=== PATIENT | female | born 1975 | race Caucasian/White ===

== ENCOUNTER 2018-02-01 14:17 | Emergency (ER) | payer BC ==
[2018-02-01 14:48] VITALS: BP 105/64
--- NOTE | 2018-02-01 15:47 | UC ---
Complaint Female HPI - HPI Summary HPI Summary: Patient is a 42-year-old female who is 7 weeks presenting to the with complaint of vaginal itching, slight discomfort, odor and discharge 4 days. She states she has had beefy in the past and states this feels somewhat similar. She has also had a yeast infection the past and states this feels dissimilar. Denies chance of STDs as she was recently tested 2 weeks ago. Denies any white vaginal discharge. However, she states the area "lyons." Denies any urinary symptoms or back pain. Denies any fevers, sweats, chills. She has been otherwise healthy with this . - History Of Current Complaint Chief Complaint: [facility]CGU Stated Complaint: PRIVATE Time Seen by Provider: 02/01/18 14:41 Hx Obtained From: Patient Hx Last Menstrual Period: 02/09/16 ?: No Onset/Duration: Sudden Onset Timing: Constant Severity Initially: Moderate Severity Currently: Moderate Pain Intensity: 0 Pain Scale Used: 0-10 Numeric Character: Burning Associated Signs And Symptoms: Positive: Vaginal Discharge - thin Related Hx: - 3, Para - 2 - Risk Factors Ectopic Risk Factor: Maternal Age ^ 30 Ovarian Torsion Risk Factor: Reproductive Age - Allergies/Home Medications Allergies/Adverse Reactions: Allergies Allergy/AdvReac Type Severity Reaction Status Date / Time No Known Allergies Allergy Verified 02/01/18 14:48 PMH/Surg Hx/FS Hx/Imm Hx Previously Healthy: Yes - Surgical History Surgical History: Yes Surgery Procedure, Year, and Place: tummy tuck and breast augmentation - Family History Known Family History: Negative: Cardiac Disease, Hypertension, Diabetes - Social History Occupation: Employed Full-time Lives: With Family Alcohol Use: None Substance Use Type: None Smoking Status (MU): Never Smoked Tobacco Have You Smoked in the Last Year: No Review of Systems Constitutional: Negative Skin: Negative Respiratory: Negative Cardiovascular: Negative Genitourinary: Vaginal/Penile Discharge, Other - vaginal burning Motor: Negative Neurovascular: Negative Musculoskeletal: Negative Psychological: Negative Is Patient Immunocompromised?: No All Other Systems Reviewed And Are Negative: Yes Physical Exam Triage Information Reviewed: Yes Appearance: Well-Appearing Vital Signs: Initial Vital Signs Temp 100.4 F 02/01/18 14:41 Pulse 77 02/01/18 14:41 BP 105/64 02/01/18 14:41 Pulse Ox 100 02/01/18 14:41 Vital Signs Reviewed: Yes Eye Exam: Normal Eyes: Positive: Conjunctiva Clear Dental Exam: Normal Neck exam: Normal Neck: Positive: Supple, No Lymphadenopathy Respiratory Exam: Normal Respiratory: Positive: Chest non-tender, Lungs clear Bowel Sounds: Positive: Present Pelvic Exam: Positive: External Exam Normal, Discharge - thin lopez. Negative: Cervicitis, Lesions, Mass Musculoskeletal Exam: Normal Musculoskeletal: Positive: Strength Intact Neurological: Positive: Alert, Muscle Tone Normal Psychological: Positive: Normal Response To Family Skin Exam: Normal Complaint Female Dx - Course Course Of Treatment: During the course of treatment, the patient is evaluated for vaginal discharge. Denies any chance of STDs. I have advised to recheck the affirm for bacterial vaginosis, yeast and Trichomonas. Patient is okay with this plan. exam performed. No external or internal lesions identified. No erythema or white copious discharge. Thin lopez discharge noted in the vaginal canal. Affirm obtained and sent for pathology. While awaiting results, I have advised patient start metronidazole gel intravaginally at bedtime 5 days. - Differential Dx/Diagnosis Provider Diagnoses: Vaginal burning and discharge Discharge - Sign-Out/Discharge Documenting (check all that apply): Patient Departure - Discharge Plan Condition: Stable Disposition: HOME Prescriptions: metroNIDAZOLE VAGINAL 0.75%* 1 applic VAGINAL BEDTIME #5 tube Patient Education Materials: Bacterial Vaginosis (ED) Referrals: Keisha Lainez MD [Primary Care Provider] - Additional Instructions: Will call with any results that differ from your current diagnoses Intravaginal Metronidazole gel x 5 days at bedtime If you feel you are developing a secondary yeast infection (less common with gel compared with oral), please use topical yeast medication until follow up with PCP/OBGYN - Billing Disposition and Condition Condition: STABLE Disposition: Home
--- NOTE | 2018-02-02 17:40 | UC ---
- Progress Note Progress Note: + frieda neg garnerella neg trich pt was Rx flagyl Please call pt - d/c flagyl Clotrimazole sent to pharmacy (pt ) Please call pt with update filemon 02/02/18 Discharge - Sign-Out/Discharge Documenting (check all that apply): Post-Discharge Follow Up - Discharge Plan Condition: Stable Disposition: HOME Prescriptions: metroNIDAZOLE VAGINAL 0.75%* 1 applic VAGINAL BEDTIME #5 tube Patient Education Materials: Bacterial Vaginosis (ED) Referrals: Keisha Lainez MD [Primary Care Provider] - Additional Instructions: Will call with any results that differ from your current diagnoses Intravaginal Metronidazole gel x 5 days at bedtime If you feel you are developing a secondary yeast infection (less common with gel compared with oral), please use topical yeast medication until follow up with PCP/OBGYN - Billing Disposition and Condition Condition: STABLE Disposition: Home
== END 2018-02-01 15:25 | disposition home or self-care (01) ==
LOC: UCEAST 14:17
DX: O99.89 Other specified diseases and conditions complicating pregnancy, childbirth and the puerperium (principal); N89.8 Other specified noninflammatory disorders of vagina; Z3A.01 Less than 8 weeks gestation of pregnancy
CPT/HCPCS: 81003; 87480; 87510; 87660; 99212; G0463

== ENCOUNTER 2018-03-05 08:33 | Emergency (ER) | payer BC, MEDICAID ==
[2018-03-05] MEDS ORDERED: NS 0.9% 1000 ML* 1,000 ML IV ONE (09:00)
[2018-03-05] MEDS ORDERED: Ondansetron INJ* 2 MG/ML VIAL IV ONE (09:10)
[2018-03-05 09:27] LABS: ABS Basophils 0 10^3/ul (0-0.2); ABS Eosinophils 0.1 10^3/ul (0-0.6); ABS Lymphocytes 1.7 10^3/ul (1.0-4.8); ABS Monocytes 0.5 10^3/ul (0-0.8); ABS Neutrophils 6.2 10^3/ul (1.5-7.7); ABS Nucleated RBC 0 10^3/ul; Eosinophil % 0.8 % (0-6); Hematocrit 39 % (35-47); Hemoglobin 13.6 g/dl (12.0-16.0); Lymphocyte % 19.6 % (25-47); Mean Corpuscular HGB Conc 35 g/dl (31-36); Mean Corpuscular Hemoglobin 33 pg (27-31); Mean Corpuscular Volume 94 fL (80-97); Mean Platelet Volume 8.3 um3 (7.4-10.4); Nucleated Red Blood Cells % 0.1; Platelet Count 171 10^3/ul (150-450); Red Blood Count 4.17 10^6/ul (4.00-5.40); Red Cell Distribution Width 13 % (10.5-15); White Blood Count 8.4 10^3/ul (3.5-10.8)
[2018-03-05 09:38] LABS: Urine Appearance Cloudy; Urine Blood Negative (Negative); Urine Color Yellow; Urine Ketones Negative (Negative); Urine Protein Negative (Negative); Urine Red Blood Cell Absent (Absent); Urine Specific Gravity 1.008 (1.010-1.030); Urine Urobilinogen Negative (Negative); Urine White Blood Cell Trace(0-5/hpf) (Absent)
[2018-03-05 11:19] VITALS: BP 120/67
--- NOTE | 2018-03-05 11:33 | ED ---
- HPI Summary HPI Summary: Patient is a 42-year-old female who presents emergency department for nausea and vomiting in early . Patient states she is roughly 12 weeks . She states she's been having nausea and vomiting over the last several weeks but symptoms have increased the last 2-3 days. She states she saw her OB around 5 weeks when she had an ultrasound that confirms an intrauterine . Patient states she has intermittent lower abdominal pain but is currently pain-free. She denies fever, chills, dysuria, vaginal bleeding or discharge. Denies recent upper respiratory symptoms. G. Denies complications with previous pregnancies other than nausea and vomiting. Patient has an appointment with her OB in 2 days. She is not taking any medications for nausea and vomiting. Symptoms are moderate in severity. No current modifying factors. Patient's notes she has not been able to keep any food down over the last several days. - History of Current Complaint Chief Complaint: EDNauseaVomitDiarrh Stated Complaint: POSS DEHYDRATION/3 MONS PREG Time Seen by Provider: 03/05/18 08:59 Hx Obtained From: Patient, Family/Panel Beater Pain Intensity: 0 - Assessment Hx Now: Yes Hx Hysterectomy: No - Allergies/Home Medications Allergies/Adverse Reactions: Allergies Allergy/AdvReac Type Severity Reaction Status Date / Time No Known Allergies Allergy Verified 03/05/18 08:45 PMH/Surg Hx/FS Hx/Imm Hx Previously Healthy: Yes Endocrine/Hematology History: Denies: Hx Diabetes, Hx Thyroid Disease Cardiovascular History: Denies: Hx Hypertension Respiratory History: Reports: Hx Pneumonia - we have no prior CXRs that show pneumonia, Other Respiratory Problems/Disorders - PNEUMONIA X 6-16 Denies: Hx Asthma - we have no prior CXRs that show pneumonia, done in December and Feb this year, Hx Chronic Obstructive Pulmonary Disease (COPD) GI History: Denies: Hx Ulcer - Surgical History Surgery Procedure, Year, and Place: tummy tuck and breast augmentation Infectious Disease History: No Infectious Disease History: Denies: Hx Clostridium Difficile, Hx Hepatitis, Hx Human Immunodeficiency Virus (HIV), Hx of Known/Suspected MRSA, Hx Shingles, Hx Tuberculosis, Hx Known/ Suspected VRE, History Other Infectious Disease, Traveled Outside the [place] in Last 30 Days - Family History Known Family History: Negative: Cardiac Disease, Hypertension, Diabetes - Social History Occupation: Works From/At Home Lives: With Family Alcohol Use: None Substance Use Type: Reports: None Hx Tobacco Use: No Smoking Status (MU): Never Smoked Tobacco Have You Smoked in the Last Year: No Review of Systems Constitutional: Negative Eyes: Negative ENT: Negative Cardiovascular: Negative Respiratory: Negative Positive: Vomiting, Nausea. Negative: Abdominal Pain Genitourinary: Negative Negative: burning, dysuria, discharge Neurological: Negative All Other Systems Reviewed And Are Negative: Yes Physical Exam - Physical Exam Triage Information Reviewed: Yes Vital Signs Reviewed: Yes Appearance: Positive: Well-Appearing - Patient sitting up in bed in no acute distress. Family present. Skin: Positive: Warm, Dry Head/Face: Positive: Normal Head/Face Inspection Eyes: Positive: Normal Neck: Positive: Supple, Nontender Respiratory/Lung Sounds: Positive: Clear to Auscultation, Breath Sounds Present Cardiovascular: Positive: Normal, RRR Abdomen Description: Positive: Nontender, No Organomegaly Neurological: Positive: Normal, CN Intact II-III Psychiatric: Positive: Affect/Mood Appropriate Diagnostics - Vital Signs Vital Signs Temp Pulse Resp BP Pulse Ox 03/05/18 11:18 99.0 F 86 18 120/67 99 03/05/18 08:44 99.3 F 88 17 131/87 98 - Laboratory Lab Results: Lab Results 03/05/18 03/05/18 03/05/18 Range/Units 09:19 09:19 09:20 WBC 8.4 (3.5-10.8) 10^3/ul RBC 4.17 (4.00-5.40) 10^6/ul Hgb 13.6 (12.0-16.0) g/dl Hct 39 (35-47) % MCV 94 (80-97) fL MCH 33 H (27-31) pg MCHC 35 (31-36) g/dl RDW 13 (10.5-15) % Plt Count 171 (150-450) 10^3/ul MPV 8.3 (7.4-10.4) um3 Neut % (Auto) 73.6 (38-83) % Lymph % (Auto) 19.6 L (25-47) % Wilson % (Auto) 5.7 (0-7) % Eos % (Auto) 0.8 (0-6) % Baso % (Auto) 0.3 (0-2) % Absolute Neuts (auto) 6.2 (1.5-7.7) 10^3/ul Absolute Lymphs (auto) 1.7 (1.0-4.8) 10^3/ul Absolute Monos (auto) 0.5 (0-0.8) 10^3/ul Absolute Eos (auto) 0.1 (0-0.6) 10^3/ul Absolute Basos (auto) 0 (0-0.2) 10^3/ul Absolute Nucleated RBC 0 10^3/ul Nucleated RBC % 0.1 Sodium 137 (135-145) mmol/L Potassium 3.7 (3.5-5.0) mmol/L Chloride 105 (101-111) mmol/L Carbon Dioxide 25 (22-32) mmol/L Anion Gap 7 (2-11) mmol/L BUN 9 (6-24) mg/dL Creatinine 0.54 (0.51-0.95) mg/dL Est GFR ( Amer) 151.3 (>60) Est GFR (Non-Af Amer) 125.0 (>60) BUN/Creatinine Ratio 16.7 (8-20) Glucose 101 H (70-100) mg/dL Calcium 9.0 (8.6-10.3) mg/dL Total Bilirubin 1.30 H (0.2-1.0) mg/dL AST 16 (13-39) U/L ALT 18 (7-52) U/L Alkaline Phosphatase 53 (34-104) U/L Total Protein 6.8 (6.4-8.9) g/dL Albumin 3.8 (3.2-5.2) g/dL Globulin 3.0 (2-4) g/dL Albumin/Globulin Ratio 1.3 (1-3) Urine Color Yellow Urine Appearance Cloudy Urine pH 7.0 (5-9) Ur Specific [place] 1.008 L (1.010-1.030) Urine Protein Negative (Negative) Urine Ketones Negative (Negative) Urine Blood Negative (Negative) Urine Nitrate Negative (Negative) Urine Bilirubin Negative (Negative) Urine Urobilinogen Negative (Negative) Ur Leukocyte Esterase 1+ A (Negative) Urine WBC (Auto) Trace(0-5/hpf) (Absent) Urine RBC (Auto) Absent (Absent) Ur Squamous Epith Cells Present A (Absent) Urine Bacteria Absent (Absent) Urine Glucose Negative (Negative) Result Diagrams: 03/05/18 09:19 03/05/18 09:19 Lab Statement: Any lab studies that have been ordered have been reviewed, and results considered in the medical decision making process. Course/Dx - Course Course Of Treatment: Patient presenting to the ER for nausea and vomiting early . She is afebrile with stable vital signs. She has a benign abdominal exam. We'll check basic labs, give IV fluids and Zofran. Labs and urinalysis are unremarkable without signs of dehydration electorlyte abnormality. Reexamination patient is feeling better after medication and is unable to keep down fluids without vomiting. Results were discussed. Will prescribe a few days of Zofran. Also advised to try taking [id number]. To follow-up with OB as scheduled in 2 days. Eat small frequent meals and increase fluids. Return to the ear symptoms change or worsen. Patient understands and agrees with plan. - Differential Diagnosis/HQI/PQRI: Hyperemesis Gravidarum, Early , UTI - Diagnoses Provider Diagnoses: Hyperemesis gravidarum Discharge - Sign-Out/Discharge Documenting (check all that apply): Patient Departure - Discharge Plan Condition: Good Disposition: HOME Prescriptions: Ondansetron TAB* [Zofran 4 MG Tab*] 4 mg PO Q6H PRN #12 tab PRN Reason: Nausea Patient Education Materials: Hyperemesis Gravidarum (ED) Referrals: Keisha Lainez MD [Primary Care Provider] - Additional Instructions: Follow up with your OB on Tuesday as scheduled Can try taking over the counter vitamin B6 for nausea Zofran as directed Increase fluids Eat and drink small frequent meals Return to ER if symptoms change or worsen - Billing Disposition and Condition Condition: GOOD Disposition: Home
== END 2018-03-05 11:18 | disposition home or self-care (01) ==
LOC: ED 08:33
DX: O21.0 Mild hyperemesis gravidarum (principal); Z3A.12 12 weeks gestation of pregnancy
CPT/HCPCS: 36415; 80053; 81003; 81015; 85025; 87086; 96374; 99282; J2405

== ENCOUNTER 2018-09-01 08:06 | Emergency (ER) | payer OTHER ==
--- OUTSIDE RECORDS SUMMARY | 2018-09-01 08:12 | XMS REPORT | Continuity of Care Document ---
:1975 External Reference #:[id number] Author Name Jacquelin Rojas MD Address [address] [place] [address] Care Team Providers Name Role Phone Keisha Potter Primary Care Physician Unavailable Payers Type Date Identification Numbers Payment Provider Subscriber Policy Number: [id number] [facility] Flores Rodriguez PayID: [id number] [address] [address] [place] [address] Policy Number: [id number] Medicaid [place] Flores Rodriguez PayID: [id number] [address] [place] [address] Advance Directives Description No Information Available Problems Date Description Provider Status Onset: 03/07/2018 Multigravida of advanced maternal age Nicholas Durbin CNM Active Onset: 07/29/2014 Adenocarcinoma of cervix MORALES Varela Resolved Resolved: 01/09/2015 Onset: 12/19/2013 Premenstrual tension syndrome Lisa Cazares NP Resolved Resolved: 04/01/2015 Onset: 04/01/2015 Uncertain viability of Lisa Cazares NP Resolved Resolved: 09/02/2015 Onset: 04/01/2015 Atypical squamous cells of undetermined Lisa Cazares NP Resolved significance on cervical Papanicolaou smear Resolved: 08/03/2016 Family History Date Family Member(s) Problem(s) Comments Father Hypercholesterolemia Mother Rheumatoid Arthritis First Daughter A&W Second Daughter A&W First Brother Hypothyroidism Second Brother born with aortic stenosis and has complications from that First Sister Hypothyroidism Paternal Grandfather due to Colon Cancer () Paternal Grandmother due to AR () Maternal Grandfather due to Cancer, Brain () Maternal Grandmother due to Congestive Heart Failure () Social History Type Date Description Comments Sex Unknown Education Highest level of education completed is a bachelor's degree Marital Status Patient is Living Situation Lives with daughters Pets Household pets include 2 dogs Occupation Day Care Provider Cigarette Use Never smoked cigarettes Alcohol Denies alcohol use Tobacco Use Start: Unknown Patient has never smoked Drug Use Denies drug use Smoking Status Reviewed: 08/08/18 Patient has never smoked Daily Caffeine Does not consume caffeine Exercise Type/Frequency Exercises regularly Current Seat Belt/Car Seat Always uses a seat belt Allergies, Adverse Reactions, Alerts Date Description Reaction Status Severity Comments 12/19/2013 NKDA Active 12/26/2006 Penicillin Inactive hives; has never taken cephalosporin Medications Medication Date Status Form Strength Qnty SIG Indications Ordering Provider / Active Tablets 0.8mg 1 po qd Unknown Vitamins 0000 Prometrium 08/25/ Hx Capsules 200mg 30caps Insert 1 Ollie Bateman 2016 - capsule in [place], 10/01/ vagina every M.D. 2017 night before bed Metrogel-Vagin 05/21/ Hx Gel 0.75% 70gm insert one Areli neves 2016 - applicator at [place], 08/02/ night at 2017 bedtime x 5 days Metrogel-Vagin 04/14/ Hx Gel 0.75% 1TX 1 applicator Molly neves 2015 - qhs x 5 days [facility], 04/19/ ANP-C 2015 No Active 04/13/ Hx Unknown Medications 2015 - 2015 Percocet 04/04/ Hx Tablets 5-325mg 10tabs 1 by mouth Nicholas 2014 - every 4 hours Ramakrishna 04/07/ as needed CNM 2015 moderate pain No Active 04/01/ Hx Unknown Medications 2014 - 2014 Plan B 02/21/ Hx Tablets 1.5mg 1tabs 1 by mouth Krupa One-Step 2013 - within 72 , Denise, 08/08/ hours of 2013 unprotected intercourse Jadyn 02/18/ Hx Tablets 3-0.02mg 84tabs 1 by mouth Phaelwaldemar 2014 - every day MD Crystal 2013 Metrogel-Vagin 10/17/ Hx Gel 0.75% 1TX 1 applicator Molly neves 2012 - qhs x 5 days [facility], 12/19/ ANP-C 2013 Gianvi 10/10/ Hx Tablets 3-0.02mg 3mo 1 po qd Ollie Bateman 2012 Ian Mir 12/19/ Ad 2013 Lexapro / Hx Tablets 10mg Unknown 2013 Clonazepam / Hx Tablets 1mg Unknown 2013 00/ Hx Capsules 100cap 1 by mouth Unknown Vitamin 0000 - s every day 2014 Lexapro /00/ Hx Tablets Unknown 2014 Lexapro /00/ Hx Tablets 5mg Unknown 2015 Progesterone / Hx Capsules 200mg 1 by mouth Unknown Micronized 0000 - every night 07/18/ at bedtime 2018 Medications Administered in Office Medication Date Status Form Strength Qnty SIG Indications Ordering Provider PT CHIQUITA Tbco Administered Injection Phaelon Id as Non User 019 MD Crystal Immunizations Description No Information Available Vital Signs Date Vital Result Comment 08/08/2018 10:39am BP Systolic 116 mmHg BP Diastolic 76 mmHg Height 61.5 inches 5'1.50" Weight 176.00 lb BMI (Body Mass Index) 32.7 kg/m2 8 Parity 2 03/07/2018 1:30pm BP Systolic 120 mmHg BP Diastolic 64 mmHg Height 61.5 inches 5'1.50" Weight 148.00 lb BMI (Body Mass Index) 27.5 kg/m2 Last Menstrual Period [id number] 8 Parity 2 10/11/2016 8:18am BP Systolic 102 mmHg BP Diastolic 70 mmHg Height 61.5 inches 5'1.50" Weight 135.00 lb BMI (Body Mass Index) 25.1 kg/m2 Last Menstrual Period 7697085 4 Parity 2 08/03/2016 10:22am BP Systolic 108 mmHg BP Diastolic 64 mmHg Height 61.5 inches 5'1.50" Weight 135.00 lb BMI (Body Mass Index) 25.1 kg/m2 Last Menstrual Period 3001861 4 Parity 2 04/13/2016 9:03am BP Systolic 110 mmHg BP Diastolic 70 mmHg Height 61.5 inches 5'1.50" Weight 141.00 lb BMI (Body Mass Index) 26.2 kg/m2 Last Menstrual Period 8979166 4 Parity 2 09/02/2015 9:44am BP Systolic 112 mmHg BP Diastolic 64 mmHg Height 61.5 inches 5'1.50" Weight 138.00 lb BMI (Body Mass Index) 25.6 kg/m2 Last Menstrual Period [id number] 4 Parity 2 04/10/2015 1:00pm BP Systolic 108 mmHg BP Diastolic 62 mmHg Height 61.5 inches 5'1.50" Weight 148.00 lb BMI (Body Mass Index) 27.5 kg/m2 Last Menstrual Period 6245589 4 Parity 2 04/01/2015 1:35pm BP Systolic 122 mmHg BP Diastolic 64 mmHg Height 61.5 inches 5'1.50" Weight 153.00 lb BMI (Body Mass Index) 28.4 kg/m2 Last Menstrual Period 9091005 4 Parity 2 01/09/2015 9:50am BP Systolic 118 mmHg BP Diastolic 70 mmHg Height 61.5 inches 5'1.50" Weight 149.00 lb BMI (Body Mass Index) 27.7 kg/m2 Last Menstrual Period 7566464 3 Parity 2 07/29/2014 11:02am BP Systolic 118 mmHg BP Diastolic 84 mmHg Height 61.5 inches 5'1.50" Weight 144.00 lb BMI (Body Mass Index) 26.8 kg/m2 Last Menstrual Period 3840397 3 Parity 2 07/08/2014 11:36am BP Systolic 106 mmHg BP Diastolic 68 mmHg Height 61.5 inches 5'1.50" Weight 142.00 lb BMI (Body Mass Index) 26.4 kg/m2 Last Menstrual Period 1268947 12/19/2013 3:02pm BP Systolic 100 mmHg BP Diastolic 58 mmHg Height 61.5 inches 5'1.50" Weight 136.00 lb BMI (Body Mass Index) 25.3 kg/m2 Last Menstrual Period 0717124 2 Parity 2 10/10/2012 2:17pm BP Systolic 110 mmHg BP Diastolic 62 mmHg Height 61 inches 5'1" Weight 131.00 lb BMI (Body Mass Index) 24.7 kg/m2 Last Menstrual Period 7295619 2 Parity 2 12/26/2006 8:14am BP Systolic 120 mmHg BP Diastolic 64 mmHg Height 62 inches 5'2" Weight 154.00 lb BMI (Body Mass Index) 28.2 kg/m2 Last Menstrual Period [id number] Results Test Date Facility Test Result H/L Range Note Laboratory test 08/04/2018 [facility] Gardnerella/Ye SEE RESULT 1, 2 [place] [address] ast: Vaginal BELOW [phone] Dna Laboratory test 07/03/2018 [facility] Glucose 1 HR 90 mg/dL N 70-160 3, 4 [place] [address] Post Prandial [phone] Laboratory test 06/27/2018 [facility] Glucose 1 HR <pending> [place] [address] Post Prandial [phone] CBC With No Diff 06/27/2018 [facility] White Blood 8.3 10^3/uL N 3.5-10.8 5 [place] [address] Count [phone] Red Blood Count 3.79 10^6/uL Low 4.00-5.40 Hemoglobin 12.8 g/dL N 12.0-16.0 Hematocrit 37 % N 35-47 Mean Corpuscular Volume 99 fL High 80-97 Mean Corpuscular Hemoglobin 34 pg High 27-31 Mean Corpuscular HGB Conc 34 g/dL N 31-36 Red Cell Distribution Width 14 % N 10.5-15 Platelet Count 158 10^3/uL N 150-450 Mean Platelet Volume 8.9 fL N 7.4-10.4 Laboratory test 06/27/2018 [facility] Glucose 1 HR 135 mg/dL N 70-160 6 [place] [address] Post Prandial [phone] Laboratory test 06/26/2018 [facility] Rupture of Negative 7 [place] [address] Membranes [phone] Urine Culture And 06/25/2018 [facility] Urine Culture SEE RESULT 8 [place] [address] BELOW [phone] Laboratory test 06/25/2018 [facility] 0.00 9 [place] [address] Hemoglobin [phone] Stain Type And Screen 06/25/2018 [facility] [place] [address] Type [phone] Antibody Screen NEGATIVE Urinalysis Profile 06/25/2018 [facility] [place] [address] [phone] Urine Appearance Clear Urine Specific [place] 1.010 N 1.010-1.030 Urine pH 6.0 N 5-9 Urine Urobilinogen Negative Negative Urine Ketones Trace Abnormal Negative Urine Protein Negative Negative Urine Leukocytes Negative Negative Urine Blood 1+ Abnormal Negative Urine Nitrite Negative Negative Urine Bilirubin Negative Negative Urine Glucose 1+(50 mg/dL) Abnormal Negative Urine White Blood Cell Trace(0-5/hpf) Absent Urine Red Blood Cell Absent Absent Urine Bacteria Absent Absent Urine Squamous Epithelial Cell Present Abnormal Absent Laboratory test 06/25/2018 [facility] Fibrinogen 354.3 N 110.8 -404.3 [place] [address] mg/dL [phone] CBC Auto Diff 06/25/2018 [facility] White Blood 8.0 N 3.5- 10.8 [place] [address] Count 10^3/uL [phone] Red Blood Count 3.79 10^6/uL Low 4.00-5.40 Hemoglobin 12.8 g/dL N 12.0-16.0 Hematocrit 36 % N 35-47 Mean Corpuscular Volume 96 fL N 80-97 Mean Corpuscular Hemoglobin 34 pg High 27-31 Mean Corpuscular HGB Conc 35 g/dL N 31-36 Red Cell Distribution Width 14 % N 10.5-15 Platelet Count 159 10^3/uL N 150-450 Mean Platelet Volume 8.2 fL N 7.4-10.4 Abs Neutrophils 5.4 10^3/uL N 1.5-7.7 Abs Lymphocytes 1.9 10^3/uL N 1.0-4.8 Abs Monocytes 0.6 10^3/uL N 0-0.8 Abs Eosinophils 0.1 10^3/uL N 0-0.6 Abs Basophils 0 10^3/uL N 0-0.2 Abs Nucleated RBC 0 10^3/uL Granulocyte % 67.8 % Lymphocyte % 23.6 % Monocyte % 7.5 % Eosinophil % 0.8 % Basophil % 0.3 % Nucleated Red Blood Cells % 0.1 Urine Culture And 06/06/2018 [facility] Urine Culture SEE RESULT 10 [place] [address] BELOW [phone] Urine Drug Comp 20 06/06/2018 [facility] Urine Negative 11 [place] [address] Amphetamine ng/mL [phone] Urine Barbiturates Negative ng/mL 12 Urine Benzodiazepines Negative ng/mL 13 Urine Cocaine Negative ng/mL 14 Urine Phencyclidine Negative ng/mL Cutoff: 25 Urine Tetrahydrocannabinol Negative ng/mL Cutoff: 50 15 Creatinine, Urine 34.9 mg/dL Specific [place] 1.003 pH 7.5 Oxidants Negative 16 Adulterants Comment Normal Codeine, Ur Not Detected ng/mL Cutoff: 25 17 Vomwfok-4-rrvk-glucuronide, Ur Not Detected ng/mL 18 Morphine, Ur Not Detected ng/mL Cutoff: 25 19 Vozuajai-4-nesu-glucuronide, U Not Detected ng/mL 20 6-monoacetylmorphine, Ur Not Detected ng/mL Cutoff: 25 21 Hydrocodone, Ur Not Detected ng/mL Cutoff: 25 22 Norhydrocodone, Ur Not Detected ng/mL Cutoff: 25 23 Dihydrocodeine, Ur Not Detected ng/mL Cutoff: 25 24 Hydromorphone, Ur Not Detected ng/mL Cutoff: 25 25 Laoelxbwyvpwe8jpasoadbcyvodzo Not Detected ng/mL 26 Oxycodone, Ur Not Detected ng/mL Cutoff: 25 27 Noroxycodone, Ur Not Detected ng/mL Cutoff: 25 28 Oxymorphone, Ur Not Detected ng/mL Cutoff: 25 29 Bwxxzyoztct-4-sdlp-glucuronide Not Detected ng/mL 30 Noroxymorphone, Ur Not Detected ng/mL Cutoff: 25 31 Fentanyl, Ur Not Detected ng/mL Cutoff: 2 32 Norfentanyl, Ur Not Detected ng/mL Cutoff: 2 33 Meperidine, Ur Not Detected ng/mL Cutoff: 25 34 Normeperidine, Ur Not Detected ng/mL Cutoff: 25 35 Naloxone, Ur Not Detected ng/mL Cutoff: 25 36 Jecxijlt-1-lrll-glucuronide, U Not Detected ng/mL 37 Methadone, Ur Not Detected ng/mL Cutoff: 25 38 Eddp, Ur Not Detected ng/mL Cutoff: 25 39 Propoxyphene, Ur Not Detected ng/mL Cutoff: 25 40 Norpropoxyphene, Ur Not Detected ng/mL Cutoff: 25 41 Tramadol, Ur Not Detected ng/mL Cutoff: 25 42 O-desmethyltramadol, Ur Not Detected ng/mL Cutoff: 25 43 Tapentadol, Ur Not Detected ng/mL Cutoff: 25 44 N-desmethyltapentadol, Ur Not Detected ng/mL Cutoff: 50 45 Anbmmhsxtj-oqgf-rludwivdirj, U Not Detected ng/mL 46 Buprenorphine, Ur Not Detected ng/mL Cutoff: 5 47 Norbuprenorphine, Ur Not Detected ng/mL Cutoff: 5 48 Norbuprenorphine glucuronide Not Detected ng/mL Cutoff: 20 49 Opioid Interpretation See Comment 50 Laboratory 06/06/2018 [facility] Gardnerella/Yeast: SEE RESULT 51 [place] [address] Vaginal Dna BELOW [phone] Laboratory 04/05/2018 [facility] Gardnerella/Yeast: SEE RESULT 52 [place] [address] Vaginal Dna BELOW [phone] HIV 1/2 AB 04/05/2018 [facility] HIV 1 2 Antibody Nonreactive Nonreactive 53 [place] [address] [phone] Laboratory 04/05/2018 [facility] Trichomonas Negative Negative 54 [place] [address] vaginalis Result [phone] Syphillis Igg W/Reflex RPR Nonreactive Nonreactive 55 Hepatitis B Surface Antigen Nonreactive Nonreactive 56 Hepatitis C Antibody Nonreactive Nonreactive 57 GC/Chlamydia Dna 04/05/2018 [facility] Chlamydia [place] [address] trachomatis Rna [phone] Neisseria gonorrhoeae (GC) Rna Negative Negative Laboratory test 04/05/2018 [facility] Herpes Negative Negative 58, 59 [place] [address] Simplex Igm [phone] Screen Herpes Simplex 04/05/2018 [facility] Herpes Positive Negative Type 1&2 [place] [address] Simplex [phone] Virus I IgG AB Herpes Simplex Virus II IgG AB Negative Negative 60 Laboratory test 04/05/2018 [facility] Hepatitis C <pending> [place] [address] Antibody [phone] Lead 04/05/2018 [facility] Lead,Venous, B < 1.0 g/dL 0.0-4 61 [place] [address] .9 [phone] Venous/Capillary Venous Submitting Laboratory Phone [phone] Type And Screen 04/05/2018 [facility] Patient [place] [address] [phone] Antibody Screen NEGATIVE CBC With No 04/05/2018 [facility] White Blood 8.0 10^3/uL N 3.5-10.8 [place] [address] Count [phone] Red Blood Count 3.89 10^6/uL Low 4.00-5.40 Hemoglobin 12.8 g/dL N 12.0-16.0 Hematocrit 36 % N 35-47 Mean Corpuscular Volume 93 fL N 80-97 Mean Corpuscular Hemoglobin 33 pg High 27-31 Mean Corpuscular HGB Conc 35 g/dL N 31-36 Red Cell Distribution Width 14 % N 10.5-15 Platelet Count 172 10^3/uL N 150-450 Mean Platelet Volume 9.1 um3 N 7.4-10.4 PNL No 04/05/2018 [facility] Rubella Screen Immune Immune 63 [place] [address] [phone] Hemoglobin A1c 4.3 % N 4.0-5.6 64 Hepatitis B Surface Ag <pending> Syphillis Igg W/Reflex RPR <pending> Chromosomes 13, 18, 21 03/08/[address] [facility] Chromosome 13 Negative N 65 + Sex Chromosome Aneuploidy Chromosome 18 Aneuploidy Negative N 66 Chromosome 21 Aneuploidy Negative N 67 Sex Chromosome Analysis Male N 68 PDF Report SEE IMAGE Thyroid Function 03/08/2018 [facility] Thyroid Stim 1.2 mIU/L 0.3-4.2 [address] [place] [address] Hormone [phone] Laboratory test 03/07/2018 [facility] Culture Genital SEE RESULT 70 [place] [address] & Sensitivity BELOW [phone] Urine Culture And 03/07/2018 [facility] Urine Culture SEE RESULT 71 [place] [address] BELOW [phone] Laboratory test 08/25/2016 [facility] HCG 12.46 N 72 [place] [address] mIU/mL [phone] Progesterone 2.1 ng/mL N 73 Laboratory test 08/03/2016 [facility] Trichomonas Negative N Negative 74 [place] [address] Vaginalis Rna [phone] Human Papilloma Virus Rna Negative N Negative 75 GC/Chlamydia Dna 08/03/2016 [facility] Chlamydia [place] [address] trachomatis Rna [phone] Neisseria gonorrhoeae (GC) Rna Negative N Negative Laboratory test 08/03/2016 [facility] Cytology SEE RESULT 76 [place] [address] BELOW [phone] GC/Chlamydia 04/13/2016 [facility] Chlamydia Negative [place] [address] trachomatis Rna [phone] Neisseria gonorrhoeae (GC) Rna Negative N Negative Laboratory 04/13/2016 [facility] Trichomonas Negative N Negative 77 [place] [address] vaginalis Rna [phone] Laboratory 04/13/2016 [facility] Gardnerella/Ye SEE RESULT 78 [place] [address] ast: Vaginal BELOW [phone] Dna HIV 1/2 AB 04/13/2016 [facility] HIV 1 2 Nonreactive N Nonreactive 79 [place] [address] Antibody [phone] Laboratory 04/13/2016 [facility] Syphillis Igg Nonreactive N Nonreactive 80 [place] [address] W/Reflex RPR [phone] Laboratory 09/02/2015 [facility] Cytology SEE RESULT 81 [place] [address] BELOW [phone] Human Papilloma Virus Rna Negative N Negative 82 Laboratory 04/29/2015 [facility] BHCG < 2.10 [place] [address] Quantitative mIU/mL [phone] Laboratory 04/10/2015 [facility] BHCG 126.59 [place] [address] Quantitative mIU/mL [phone] Parvovirus B19 04/01/2015 [facility] Parvovirus (B19) 5.84 index Abnormal <0.9 83 Igg & [place] [address] IgG Antibody 0 [phone] Parvovirus (B19) IgM Antibody 0.10 index N <0.90 84 Parvovirus Interpretation See Comment N 85 [facility] [place] [address] Quantitative mIU/mL [phone] Urine Culture 04/01/2015 [facility] Urine Culture SEE [address] [place] [address] RESULT Sensitivities [phone] BELOW Laboratory test 01/09/2015 [facility] Human POSITIVE Abnormal Negative 87 [place] [address] Papilloma [phone] Virus Rna GC/Chlamydia 01/09/2015 [facility] Chlamydia Negative [place] [address] trachomatis [phone] Rna Neisseria gonorrhoeae (GC) Rna Negative N Negative 88 Laboratory test 01/09/2015 [facility] Cytology SEE RESULT 89 [place] [address] BELOW [phone] Laboratory test 07/29/2014 [facility] Beta HCG 2.53 IU/mL N 0.0- 90, 91 [place] [address] Quantitative 5.0 [phone] Type And Screen 07/29/2014 [facility] [place] [address] Type [phone] Antibody Screen NEGATIVE N GC/Chlamydia Dna 07/29/2014 [facility] Chlamydia Negative [place] [address] trachomatis Rna [phone] Neisseria gonorrhoeae (GC) Rna Negative N Negative 92 GC/Chlamydia 12/19/2013 [facility] GC/Chlamydia RUN DATE: 93 [place] [address] Rna 12/21/ <SEE [phone] NOTE> Laboratory 12/19/2013 [facility] Cytology RUN DATE: 94 [place] [address] 12/21/ <SEE [phone] NOTE> RPR 12/19/2013 [facility] Syphilis IgG Nonreactive N Nonreactive 95 [place] [address] [phone] RPR TNP N Nonreactive RPR Titer TNP N Pediatric/Maternal NO N Herpes Simplex 12/19/2013 [facility] Herpes Simplex Negative N Negative 96 Type 1&2 [place] [address] Type 1 2 IgM [phone] Herpes Simplex 12/19/2013 [facility] Herpes Simplex Positive N Negative Type 1&2 [place] [address] Virus I IgG AB [phone] Herpes Simplex Virus II IgG AB Negative N Negative 97 Hepatitis 12/19/2013 [facility] Hepatitis B Nonreactive [place] [address] Surface [phone] Antigen Hepatitis B Core IgM Nonreactive N Nonreactive Hepatitis A AB IgM Nonreactive N Nonreactive Hepatitis C Antibody Nonreactive N Nonreactive HIV 1/2 AB 12/19/2013 [facility] HIV 1 2 Antibody Nonreactive N Nonreactive [address] [place] [address] [phone] GC/Chlamydia 10/10/2012 [facility] GC/Chlamydia Rna (SEE NOTE) neg 99 [place] [address] [phone] Laboratory 10/10/2012 [facility] Cytology RUN DATE: [place] [address] 10/17/ <SEE [phone] NOTE> Human 10/10/2012 [facility] [place] [address] Papillomavirus Virus [phone] Source Human Papillomavirus High Risk Negative Negative 101 Laboratory test 12/26/2006 [facility] Urine Culture NG [address] [place] [address] Sensitivi [phone] 1 [id number] 2 SEE RESULT BELOW Name: FLORES RODRIGUEZ : [address]: Nicholas Durbin [facility] Acct: [id number] Unit: [id number] AGE: 43 Location: [facility] Re08/04/18 SEX: F Status: REG REF SPEC: [id number] MICHAELA: 08/04/18-[address]: Nicholas Durbin [facility] REQ: [id number] RECD: 08/04/182874 STATUS: COMP _ SOURCE: VAGINAL SPDESC: ORDERED: Emmy,Yeast DNA COMMENTS: [id number] Would you like to order Trichomonas Vaginalis testing? No Procedure Result Reported Site Gardnerella/Yeast: Vaginal DNA Final 08/05/18- 1509 ML Organism 1 Negative Gardnerella Organism 2 Negative Iesha The presence of G. vaginalis, although suggestive, is not diagnostic for bacterial vaginosis. Results should be interpreted in conjuction with other clinical and laboratory data available. Women with vaginal discharge should be evaluated for risk factors of cervicitis and pelvic inflammatory disease, toxic shock syndrome (S.aureus), and if present, evaluated for organisms not included in this assay such as N. gonorrhoeae, C. trachomatis, Mobiluncus, Mycoplasma and/or Prevotella. Mixed infections may occur. The performance of this test on patient specimens collected during or immediately after antimicrobial therapy is unknown. The presence or absence of Iesha species, or G. vaginalis cannot be used as a test for therapeutic success or failure. * - Main Lab . END OF REPORT DEPARTMENT OF PATHOLOGY, [address] [place] [address] James Richter M.D. Director [facility] # [id number] 7 A NEGATIVE results indicates there is no evidence of membrane rupture. 8 SEE RESULT BELOW Name: FLORES RODRIGUEZ : [address]: Jacquelin Rojas MD Acct: [id number] Unit: [id number] AGE: 43 Location: [facility] Re06/25/18 SEX: F Status: DEP REF SPEC: [id number] MICHAELA: 06/25/18-[address]: Yamileth Huang [facility] REQ: [id number] RECD: 06/25/18 STATUS: WALTER ROUSE DR: Keisha Rojas MD _ SOURCE: URINE [facility]: ORDERED: Urine Culture Procedure Result Reported Site Urine Culture Final 06/27/18- 0816 ML No Growth (<1,000 CFU/mL) * ML - Main Lab . END OF REPORT DEPARTMENT OF PATHOLOGY, [address] [place] [address] James Richter M.D. Director [facility] # [id number] Hemoglobin Interpretation: % Cells Volume of Maternal Hemorrhage 0.0 - 0.0045 Up to 15 ml 0.0046 - 0.0090 15 - 30 ml 0.0091 - 0.0135 30 - 45 ml 0.0136 - 0.0180 45 - 60 ml 0.0181 - 0.0225 60 - 75 ml 10 SEE RESULT BELOW Name: FLORES RODRIGUEZ : [address]: Nicholas Durbin [facility] Acct: [id number] Unit: [id number] AGE: 42 Location: [facility] Re06/06/18 SEX: F Status: REG REF SPEC: [id number] MICHAELA: 06/06/[address]: Nicholas Durbin [facility] REQ: [id number] RECD: 06/06/18 STATUS: COMP _ SOURCE: URINE SPDESC: ORDERED: Urine Culture COMMENTS: [id number] Urine Source: Random Procedure Result Reported Site Urine Culture Final 06/07/18- 1207 ML No Growth (<1,000 CFU/mL) * ML - Main Lab . END OF REPORT DEPARTMENT OF PATHOLOGY, [address] [place] [address] James Richter M.D. Director [facility] # [id number] 11 REFERENCE VALUE Cutoff: 500 12 REFERENCE VALUE Cutoff: 200 13 REFERENCE VALUE Cutoff: 100 14 REFERENCE VALUE Cutoff: 150 15 ADDITIONAL INFORMATION This report is intended for use in clinical monitoring or management of patients. It is not intended for use in employment-related testing. 16 REFERENCE VALUE Cutoff: 200 mg/L 17 Tylenol 3 18 Metabolite of codeine REFERENCE VALUE Cutoff: 100 19 Vanna Santana, [place] Contin; Also a minor metabolite (10%) of codeine and can be seen in low concentrations (<2,000 ng/mL) with poppy seed ingestion. 20 Metabolite of morphine REFERENCE VALUE Cutoff: 100 21 Metabolite of heroin 22 Lortab, [place], Vicodin; Also a very minor metabolite of codeine and impurity (<1%) of oxycodone. 23 Metabolite of hydrocodone 24 Metabolite of hydrocodone 25 Dilaudid, Exalgo; Also a metabolite of hydrocodone and a minor (<5%) metabolite of morphine. 26 Metabolite of hydromorphone REFERENCE VALUE Cutoff: 100 27 Endocet, Percocet, Oxycontin 28 Metabolite of oxycodone 29 Numorphan, Opana; Also a metabolite of oxycodone. 30 Metabolite of oxymorphone REFERENCE VALUE Cutoff: 100 31 Metabolite of oxymorphone 32 Actiq, Duragesic, Fentora 33 Metabolite of fentanyl 34 Demerol 35 Metabolite of meperidine 36 Narcan 37 Metabolite of naloxone REFERENCE VALUE Cutoff: 100 38 Dolophine 39 Metabolite of methadone 40 Darvon, Darvocet 41 Metabolite of propoxyphene 42 Tradol, Ultram, Ultracet 43 Metabolite of tramadol 44 Nucynta 45 Metabolite of tapentadol 46 Metabolite of tapentadol REFERENCE VALUE Cutoff: 100 47 Buprenex, Suboxone 48 Metabolite of buprenorphine 49 Metabolite of buprenorphine 50 No opioids were detected. The absence of expected drug(s) and/or drug metabolite(s) may indicate non-compliance, altered pharmacokinetics, inappropriate timing of specimen collection relative to drug administration, diluted/adulterated urine, or limitations of testing. ADDITIONAL INFORMATION This test was developed and its performance characteristics determined by [facility] in a manner consistent with CLIA requirements. This test has not been cleared or approved by the U.S. Food and Drug Administration. Test Performed by: [facility] [address] [place] [address] 51 SEE RESULT BELOW Name: FLORES RODRIGUEZ : [address]: Nicholas Durbin [facility] Acct: [id number] Unit: [id number] AGE: 42 Location: [facility] Re06/06/18 SEX: F Status: REG REF SPEC: [id number] MICHAELA: 06/06/[address] [facility] [address]: Nicholas Durbin [facility] REQ: [id number] RECD: 06/06/18 STATUS: COMP _ SOURCE: VAGINAL SPDESC: ORDERED: Emmy,Yeast DNA COMMENTS: [id number] Would you like to order Trichomonas Vaginalis testing? No Procedure Result Reported Site Gardnerella/Yeast: Vaginal DNA Final 06/07/18- 1326 ML Organism 1 Negative Iesha Organism 2 Negative Gardnerella The presence of G. vaginalis, although suggestive, is not diagnostic for bacterial vaginosis. Results should be interpreted in conjuction with other clinical and laboratory data available. Women with vaginal discharge should be evaluated for risk factors of cervicitis and pelvic inflammatory disease, toxic shock syndrome (S.aureus), and if present, evaluated for organisms not included in this assay such as N. gonorrhoeae, C. trachomatis, Mobiluncus, Mycoplasma and/or Prevotella. Mixed infections may occur. The performance of this test on patient specimens collected during or immediately after antimicrobial therapy is unknown. The presence or absence of Iesha species, or G. vaginalis cannot be used as a test for therapeutic success or failure. * - Main Lab . END OF REPORT DEPARTMENT OF PATHOLOGY, [address] [place] [address] James Richter M.D. Director [facility] # [id number] 52 SEE RESULT BELOW Name: FLORES RODRIGUEZ : [address]: Chantal Olivares CNM Acct: [id number] Unit: [id number] AGE: 42 Location: [facility] Re04/05/18 SEX: F Status: REG REF SPEC: [id number] MICHAELA: 04/05/18-[address]: Chantal Olivares CNM REQ: [id number] RECD: 04/06/18 STATUS: WALTER ROUSE DR: Keisha Potter MD _ SOURCE: VAGINAL SPDESC: ORDERED: Emmy,Yeast DNA Would you like to order Trichomonas Vaginalis testing? Y Procedure Result Reported Site Gardnerella/Yeast: Vaginal DNA Final 04/07/18- 1533 ML Organism 1 POSITIVE GARDNERELLA Organism 2 POSITIVE IESHA The presence of G. vaginalis, although suggestive, is not diagnostic for bacterial vaginosis. Results should be interpreted in conjuction with other clinical and laboratory data available. Women with vaginal discharge should be evaluated for risk factors of cervicitis and pelvic inflammatory disease, toxic shock syndrome (S.aureus), and if present, evaluated for organisms not included in this assay such as N. gonorrhoeae, C. trachomatis, Mobiluncus, Mycoplasma and/or Prevotella. Mixed infections may occur. The performance of this test on patient specimens collected during or immediately after antimicrobial therapy is unknown. The presence or absence of Iesha species, or G. vaginalis cannot be used as a test for therapeutic success or failure. * ML - Main Lab . END OF REPORT DEPARTMENT OF PATHOLOGY, [address] [place] [address] James Richter M.D. Director [facility] # [id number] 53 It is recognized that currently available assays for the detection of antibodies to HIV-1 and/or HIV-2 may not detect all infected individuals. HIV antibodies may be undetectable in some stages of the infection and in some clinical conditions. The performance of this assay has not been established for populations of infants or children. Assayed by Chemiluminescence Microparticle Immunoassay on the Siemens Advia Centaur CP. Values obtained with different methods or kits cannot be used interchangeably.The diagnostic specificity of the ADVIA Centaur 1/O/2 Enhanced assay in the low risk population was 99.90% (6052/6058) with a 95% confidence interval of 99.78 to 99.96%. 54 GC/Chlamydia Source?: Endocervical Trichomonas Source: Endocervical 55 Warning: A positive result is not useful for establishing a diagnosis of syphilis. In most situations, such a result may reflect a prior treated infection; a negative result can exclude a diagnosis of syphilis except for incubating or early primary disease. 56 [id number] 57 [id number] 58 [id number] 59 ADDITIONAL INFORMATION This test has been modified from the numerical analysis group manager's instructions. Its performance characteristics were determined by [facility] in a manner consistent with CLIA requirements. This test has not been cleared or approved by the U.S. Food and Drug Administration. Test Performed by: [facility] - [address] [address] 60 Test Performed by: [facility] - [address] [address] 61 ADDITIONAL INFORMATION Testing performed by Inductively Coupled Plasma-Mass Spectrometry (ICP-MS). This test was developed and its performance characteristics determined by [facility] in a manner consistent with CLIA requirements. This test has not been cleared or approved by the U.S. Food and Drug Administration. 62 Test Performed by: [address] [address] 63 [id number] 64 Therapeutic target for the treatment of diabetes mellitus patients is <7% HBA1C, and in selective patients <6.0%. Please refer to [place] diabetic care guidelines for further information. 65 No aneuploidy detected. 66 No aneuploidy detected. 67 No aneuploidy detected. 68 Male: No aneuploidy detected. 69 Test Performed by: [facility] - [address] [address] 70 SEE RESULT BELOW Name: FLORES RODRIGUEZ : [address]: Molly Scales Acct: [id number] Unit: [id number] AGE: 42 Location: [facility] Re03/07/18 SEX: F Status: REG REF SPEC: [id number] MICHAELA: 03/07/18-[address]: Molly ROSALES C REQ: [id number] RECD: 03/07/18-561 STATUS: COMP _ SOURCE: CERVIX SPDESC: ORDERED: Genital Culture COMMENTS: [id number] Procedure Result Reported Site Genital Culture Final 03/19/18- 1710 ML Organism 1 YEAST Quantity 1+ Organism 2 NORMAL LYNDON Quantity 1+ Routine genital cultures do not include selective agar for Neisseria gonorrhoeae. Molecular testing offers better test sensitivity and therefore is the preferred test methodology for identifying this organism. * ML - Main Lab . END OF REPORT DEPARTMENT OF PATHOLOGY, [address] [place] [address] James Richter M.D. Director [facility] # [id number] 71 SEE RESULT BELOW Name: FLORES RODRIGUEZ : [address]: Molly Scales Acct: [id number] Unit: [id number] AGE: 42 Location: [facility] Re03/07/18 SEX: F Status: REG REF SPEC: [id number] MICHAELA: 03/07/18-[address]: Molly Scales REQ: [id number] RECD: 03/07/18 STATUS: COMP _ SOURCE: URINE SPDESC: ORDERED: Urine Culture COMMENTS: [id number] Procedure Result Reported Site Urine Culture Final 03/08/18- 1620 ML No Growth (<1,000 CFU/mL) * ML - Main Lab . END OF REPORT DEPARTMENT OF PATHOLOGY, [address] [place] [address] James Richter M.D. Director [facility] # [id number] 72 <5.0 Negative 5.0 - 25.0 Indeterminate (Repeat testing recommended after 72 hours) >25.0 Positive Perimenopausal women can display HCG levels of up to 20 mIU/mL 73 Female reference ranges for Progesterone: Follicular phase.......0.3 - 1.5 ng/ml Mid-luteal phase.......5.2 - 18.5 ng/ml Postmenopausal.........< 0.8 ng/ml 1st trimester.........4.7 - 50.0 ng/ml 2nd trimester.........19.4 - 45.3 ng/ml 74 [id number] GC/Chlamydia Source?: Thin Prep HPV Source?: Thin Prep Trichomonas Source: Thin Prep 75 The high-risk HPV types detected by the assay include: 16, 18, 31, 33, 35, 39, 45, 51, 52, 56, 58, 59, 66, and 68. 76 SEE RESULT BELOW Name: FLORES IRWIN : [address]: Lisa Cazares NP Acct: [id number] Unit: [id number] AGE: 41 Location: [facility] Re08/03/16 SEX: F Status: REG REF SPEC: [id number] MICHAELA: 08/03/16-[address] [facility] [address]: Lisa Cazares NP REQ: [id number] RECD: 08/03/16 STATUS: SOUT _ ORDERED: IMAGE ANALYSIS, HPV/Thin Prep COMMENTS: [id number] FINAL DIAGNOSIS Negative for Intraepithelial lesion or Malignancy A. Ectocervical/Endocervical Specimen Adequacy: Satisfactory of evaluation Transformation zone component identified Patient Information: HPV: High risk HPV RNA testing regardless of pap results. Actual Specimen Date: 08/03/16 Last Menstrual Date: 07/27/16 Date of Last Specimen: 09/02/15 ?: N Date Time Test Result Flag (u) Normal Range 08/03/16 1056 HPV RNA Negative Negative The high-risk HPV types detected by the assay include: 16, 18, 31, 33, 35, 39, 45, 51, 52, 56, 58, 59, 66, and 68. Signed (signature on file) HEMANT Tan(ASCP) 08/05 0845 This Pap test was evaluated with the assistance of the ThinPrep Test Imaging System. Due to cytologic findings at the ear muff assembler microscope, comprehensive manual rescreening by a Door Slinger may be required. The Pap Smear is a screening test designed to aid in the detection of premalignant and malignant conditions of the uterine cervix. It is not a diagnostic procedure and should not be used as the sole means of detecting cervical cancer. Both false- positive and false- negative reports do occur. Depending on your risk status, a Pap smear should be obtained and evaluated every 1-3 years. END OF REPORT * ML=Testing performed at Main Lab DEPARTMENT OF PATHOLOGY, [address] [place] [address] James Richter M.D. Director [facility] # [id number] 77 [id number] GC/Chlamydia Source?: Endocervical Trichomonas Source: Endocervical 78 SEE RESULT BELOW Name: FLORES IRWIN : [address]: Molly Scales Acct: [id number] Unit: [id number] AGE: 40 Location: [facility] Re04/13/16 SEX: F Status: REG REF SPEC: [id number] MICHAELA: 04/13/[address]: Molly Scales REQ: [id number] RECD: 04/13/16-9352 STATUS: COMP _ SOURCE: VAGINAL SPDESC: ORDERED: Emmy,Yeast DNA COMMENTS: [id number] Procedure Result Reported Site Gardnerella/Yeast: Vaginal DNA Final 04/14/16- 1100 ML Organism 1 POSITIVE GARDNERELLA Organism 2 Negative Iesha The presence of G. vaginalis, although suggestive, is not diagnostic for bacterial vaginosis. Results should be interpreted in conjuction with other clinical and laboratory data available. Women with vaginal discharge should be evaluated for risk factors of cervicitis and pelvic inflammatory disease, toxic shock syndrome (S.aureus), and if present, evaluated for organisms not included in this assay such as N. gonorrhoeae, C. trachomatis, Mobiluncus, Mycoplasma and/or Prevotella. Mixed infections may occur. The performance of this test on patient specimens collected during or immediately after antimicrobial therapy is unknown. The presence or absence of Iesha species, or G. vaginalis cannot be used as a test for therapeutic success or failure. * ML - MAIN LAB ([facility]) . END OF REPORT * ML=Testing performed at Main Lab DEPARTMENT OF PATHOLOGY, [address] [place] [address] James Richter M.D. Director [facility] # [id number] 79 It is recognized that currently available assays for the detection of antibodies to HIV-1 and/or HIV-2 may not detect all infected individuals. HIV antibodies may be undetectable in some stages of the infection and in some clinical conditions. The performance of this assay has not been established for populations of infants or children. Assayed by Chemiluminescence Microparticle Immunoassay on the Siemens Advia Centaur CP. Values obtained with different methods or kits cannot be used interchangeably.The diagnostic specificity of the ADVIA Centaur 1/O/2 Enhanced assay in the low risk population was 99.90% (6052/6058) with a 95% confidence interval of 99.78 to 99.96%. 80 Warning: A positive result is not useful for establishing a diagnosis of syphilis. In most situations, such a result may reflect a prior treated infection; a negative result can exclude a diagnosis of syphilis except for incubating or early primary disease. 81 SEE RESULT BELOW Name: FLORES IRWIN : 1975 Attend : Lisa Cazraes NP Acct: [id number] Unit: [id number] AGE: 40 Location: [facility] Re09/02/15 SEX: F Status: REG REF SPEC: [id number] MICHAELA: 09/02/15-[address] [place] [address] : Lisa Cazares NP REQ: [id number] RECD: 09/02/150 STATUS: SOUT _ ORDERED: IMAGE ANALYSIS, HPV/Thin Prep FINAL DIAGNOSIS Negative for Intraepithelial lesion or Malignancy Shift in lyndon suggestive of bacterial vaginosis A. Ectocervical/Endocervical Specimen Adequacy: Satisfactory of evaluation Transformation zone component identified Predominance of white blood cells Patient Information: HPV: High risk HPV RNA testing regardless of pap results. Actual Specimen Date: 09/02/15 Last Menstrual Date: 09/02/15 Date of Last Specimen: 01/09/15 Date Time Test Result Flag (u) Normal Range 09/02/15 1002 HPV RNA Negative Negative The high-risk HPV types detected by the assay include: 16, 18, 31, 33, 35, 39, 45, 51, 52, 56, 58, 59, 66, and 68. Signed (signature on file) HEMANT Tan(ASCP) 09/03 6360 This Pap test was evaluated with the assistance of the ScaleMPPrep Test Imaging System. Due to cytologic findings at the ear muff assembler microscope, comprehensive manual rescreening by a Door Slinger may be required. The Pap Smear is a screening test designed to aid in the detection of premalignant and malignant conditions of the uterine cervix. It is not a diagnostic procedure and should not be used as the sole means of detecting cervical cancer. Both false- positive and false- negative reports do occur. Depending on your risk status, a Pap smear should be obtained and evaluated every 1-3 years. END OF REPORT * ML=Testing performed at Main Lab DEPARTMENT OF PATHOLOGY, [address] [place] [address] James Richter M.D. Director [facility] # [id number] 82 The high-risk HPV types detected by the assay include: 16, 18, 31, 33, 35, 39, 45, 51, 52, 56, 58, 59, 66, and 68. 83 Positive 84 Negative 85 RESULT: Results suggest past infection. Test Performed by: [place] [address] [employer] Merchandising Manager: Griffin Tam II, M.D., Ph.D. 86 SEE RESULT BELOW Name: ALIDAFLORES : [address]: Lisa Cazares NP Acct: [id number] Unit: [id number] AGE: 39 Location: [facility] Re04/01/15 SEX: F Status: REG REF SPEC: [id number] MICHAELA: 04/01/[address]: Lisa Cazares NP REQ: [id number] RECD: 04/01/15 STATUS: COMP _ SOURCE: URINE SPDESC: ORDERED: Urine Culture Urine Source: Clean Catch Procedure Result Verified Site Urine Culture Final 04/03/15- 928 ML No Growth Day 2 (<1,000 CFU/mL) * ML - MAIN LAB ([facility]) . END OF REPORT * ML=Testing performed at Main Lab DEPARTMENT OF PATHOLOGY, [address] [place] [address] James Richter M.D. Director [facility] # [id number] 87 The high-risk HPV types detected by the assay include: 16, 18, 31, 33, 35, 39, 45, 51, 52, 56, 58, 59, 66, and 68. 88 Female urine specimens have been self-validated by [facility] and have been granted conditional assay approval by [facility]. 89 SEE RESULT BELOW Name: FLORES IRWIN : [address]: Lisa Cazares NP Acct: [id number] Unit: [id number] AGE: 39 Location: [facility] Re01/09/15 SEX: F Status: REG REF SPEC: [id number] MICHAELA: 01/09/15-[address]: Lisa Cazares NP REQ: [id number] RECD: 01/09/15 STATUS: SOUT _ ORDERED: IMAGE ANALYSIS, PAP SM PATH REV, HPV/Thin Prep FINAL DIAGNOSIS EPITHELIAL CELL ABNORMALITIES Atypical squamous cells of undetermined significance A. Ectocervical/Endocervical Specimen Adequacy: Satisfactory of evaluation Transformation zone component identified Patient Information: HPV: High risk HPV RNA testing regardless of pap results. Actual Specimen Date: 01/09/15 Last Menstrual Date: 01/03/15 Date of Last Specimen: 12/19/13 Date Time Test Result Flag (u) Normal Range 01/09/15 1021 HPV RNA POSITIVE H Negative The high-risk HPV types detected by the assay include: 16, 18, 31, 33, 35, 39, 45, 51, 52, 56, 58, 59, 66, and 68. Signed (signature on file) Charisma Carroll MD 1658 This Pap test was evaluated with the assistance of the Reconnex Test Imaging System. Due to cytologic findings at the ear muff assembler microscope, comprehensive manual rescreening by a Door Slinger may be required. The Pap Smear is a screening test designed to aid in the detection of premalignant and malignant conditions of the uterine cervix. It is not a diagnostic procedure and should not be used as the sole means of detecting cervical cancer. Both false- positive and false- negative reports do occur. Depending on your risk status, a Pap smear should be obtained and evaluated every 1-3 years. END OF REPORT * ML=Testing performed at Main Lab DEPARTMENT OF PATHOLOGY, [address] [place] [address] James Richter M.D. Director [facility] # [id number] 90 SCREEN FOR VENERAL DIS 91 <5.0 Negative 5.0 - 25.0 Indeterminate >25.0 Positive 92 Female urine specimens have been self-validated by [facility] and have been granted conditional assay approval by [facility]. 93 RUN DATE: 12/21/13 [facility] LIVE PAGE 1 RUN TIME: [address] [place] [address] Specimen Inquiry Name: FLORES IRWIN : [address]: Lisa Cazares NP Acct: [id number] Unit: [id number] AGE: 38 Location: [facility] Re12/19/13 SEX: F Status: REG REF SPEC: [id number] MICHAELA: 12/19/[address]: Lisa Cazares NP REQ: [id number] RECD: 12/20/13 STATUS: COMP _ SOURCE: JULISSA SANTANAESC: ORDERED: VEDA/Jonathan RNA QUERIES: Medent Number [id number] Procedure Result Verified Site Chlamydia Trachomatis RNA Final 12/21/13- 1353 ML NEGATIVE for Chlamydia trachomatis rRNA GC (N. gonorrhoeae) RNA Final 12/21/13- 1353 ML NEGATIVE for Neisseria gonorrhoeae rRNA A negative result does not preclude the presence of a C. trachomatis or N. gonorrhoeae infection because results are dependent on adequate specimen collection, absence of inhibitors, and sufficient rRNA to be detected. Test results may be affected by improper specimen collection, improper storage, technical error, or specimen mixup. Limitations of the Procedure: The Aptima Combo 2 Assay is not intended for the evaluation of suspected sexual abuse or for other medico-legal indications. For those patients for whom a false positive result may have adverse psychosocial impact, the CDC recommends retesting by a method using an alternate technology. Therapeutic failure or success cannot be determined with the Aptima Combo 2 Assay since nucleic acid may persist following appropriate antimicrobial therapy. Results from the Aptima Combo 2 Assay should be interpreted in conjunction with other laboratory and clinical data available to the clinican. CONTINUED ON NEXT PAGE * ML=Testing performed at Main Lab DEPARTMENT OF PATHOLOGY, [facility] [place] [id number] James Richter M.D. Director [facility] # [id number] RUN DATE: 12/21/13 [facility] LIVE PAGE 2 RUN TIME: 1353 [facility] [place], [place] [address] Specimen Inquiry Patient: FLORES IRWIN [id number] (Continued) Specimen: [id number] Collected: 12/19/13-1036 Received: 12/20/13-1037 (Continued) Procedure Result Verified Site GC (N. gonorrhoeae) RNA Final (continued) 12/21/13- 1469 Performance characteristics for detecting C. trachomatis and N. gonorrhoeae are derived from high prevalence populations. Positive results in low prevalence populations should be interpreted carefully with the understanding that the likelihood of a false positive may be higher than a true positive. END OF REPORT * ML=Testing performed at Main Lab DEPARTMENT OF PATHOLOGY, [facility] [place], [place] [address] James Richter M.D. Director [facility] # [id number] 94 RUN DATE: 12/21/13 [facility] LIVE PAGE 1 RUN TIME: [address] [place], [place] [address] Specimen Inquiry Name: SHAWNFLORES COLBY : [address]: Lisa Cazares NP Acct: [id number] Unit: [id number] AGE: 38 Location: [facility] Re12/19/13 SEX: F Status: REG REF SPEC: [id number] MICHAELA: 12/19/131137 SUBM DR: Lisa Cazares NP REQ: [id number] RECD: 12/20/13 STATUS: SOUT _ ORDERED: IMAGE ANALYSIS FINAL DIAGNOSIS Negative for Intraepithelial lesion or Malignancy A. Ectocervical/Endocervical Specimen Adequacy: Satisfactory of evaluation Transformation zone component identified Patient Information: HPV: Thin Layer Pap Test w/reflex to high risk HPV DNA testing when ASCUS Actual Specimen Date: 12/19/13 Last Menstrual Date: 12/12/13 Date of Last Specimen: 10/10/12 Signed (signature on file) Mode Rubio HEMANT (ASCP) 12/21 1006 This Pap test was evaluated with the assistance of the ScaleMPPrep Test Imaging System. Due to cytologic findings at the ear muff assembler microscope, comprehensive manual rescreening by a Door Slinger may be required. The Pap Smear is a screening test designed to aid in the detection of premalignant and malignant conditions of the uterine cervix. It is not a diagnostic procedure and should not be used as the sole means of detecting cervical cancer. Both false- positive and false- negative reports do occur. Depending on your risk status, a Pap smear shoudl be obtained and evaluated every 1-3 years. END OF REPORT * ML=Testing performed at Main Lab DEPARTMENT OF PATHOLOGY, [address] [place] [address] James Richter M.D. Director [facility] # [id number] 95 Warning: A positive result is not useful for establishing a diagnosis of syphilis. In most situations, such a result may reflect a prior treated infection; a negative result can exclude a diagnosis of syphilis except for incubating or early primary disease. 96 The performance of this assay has not been established for use in neonates, infants or on cord blood. Test Performed by: [address] [address] [employer] Merchandising Manager: Santiago Torres III, M.D. 97 Test Performed by: [address] [address] [employer] Merchandising Manager: Santiago Torres III, M.D. 98 It is recognized that currently available assays for the detection of antibodies to HIV-1 and/or HIV-2 may not detect all infected individuals. HIV antibodies may be undetectable in some stages of the infection and in some clinical conditions. The performance of this assay has not been established for populations of infants or children. Assayed by Chemiluminescence Microparticle Immunoassay on the Siemens Advia Centaur CP. Values obtained with different methods or kits cannot be used interchangeably.The diagnostic specificity of the ADVIA Centaur 1/O/2 Enhanced assay in the low risk population was 99.90% (6052/6058) with a 95% confidence interval of 99.78 to 99.96%. 99 RUN DATE: 10/12/12 [facility] LAB LIVE PAGE 1 RUN TIME: [address] [place] [address] Specimen Inquiry Name: FLORES IRWIN : [address]: Lisa Cazares NP Acct: [id number] Unit: [id number] AGE: 37 Location: [facility] Re10/10/12 SEX: F Status: REG REF SPEC: [id number] MICHAELA: 10/10/12-[address] [facility] [address]: Lisa Cazares NP REQ: [id number] RECD: 10/11/12 STATUS: COMP _ SOURCE: THIN SPDESC: ORDERED: GC/Chlam RNA QUERIES: Medent Number [id number] Procedure Result Verified Site Chlamydia Trachomatis RNA Final 10/12/12- 1437 ML NEGATIVE for Chlamydia trachomatis rRNA GC (N. gonorrhoeae) RNA Final 10/12/12- 1438 ML NEGATIVE for Neisseria gonorrhoeae rRNA A negative result does not preclude the presence of a C. trachomatis or N. gonorrhoeae infection because results are dependent on adequate specimen collection, absence of inhibitors, and sufficient rRNA to be detected. Test results may be affected by improper specimen collection, improper storage, technical error, or specimen mixup. Limitations of the Procedure: The Aptima Combo 2 Assay is not intended for the evaluation of suspected sexual abuse or for other medico-legal indications. For those patients for whom a false positive result may have adverse psychosocial impact, the CDC recommends retesting by a method using an alternate technology. Therapeutic failure or success cannot be determined with the Aptima Combo 2 Assay since nucleic acid may persist following appropriate antimicrobial therapy. Results from the Aptima Combo 2 Assay should be interpreted in conjunction with other laboratory and clinical data available to the clinican. CONTINUED ON NEXT PAGE * ML=Testing performed at [facility] DEPARTMENT OF PATHOLOGY, [address] [place] [address] James Richter M.D. Director [facility] Permit #[id number] RUN DATE: 10/12/12 [facility] LAB LIVE PAGE 2 RUN TIME: [address] [place] [address] Specimen Inquiry Patient: FLORES IRWIN [id number] (Continued) Specimen: [id number] Collected: 10/10/12 Received: 10/11/12-1031 (Continued) Procedure Result Verified Site GC (N. gonorrhoeae) RNA Final (continued) 10/12/12- 1434 Performance characteristics for detecting C. trachomatis and N. gonorrhoeae are derived from high prevalence populations. Positive results in low prevalence populations should be interpreted carefully with the understanding that the likelihood of a false positive may be higher than a true positive. END OF REPORT * ML=Testing performed at Main Lab DEPARTMENT OF PATHOLOGY, [address] [place] [address] James Richter M.D. Director [facility] Permit #[id number] RUN DATE: 10/17/12 [facility] LAB LIVE PAGE 1 RUN TIME: [address] [place] [address] Specimen Inquiry Name: FLORES IRWIN : [address]: Lisa Cazares NP Acct: [id number] Unit: [id number] AGE: 37 Location: [facility] Re10/10/12 SEX: F Status: REG REF SPEC: [id number] MICHAELA: 10/10/12-[address]: Lisa Cazares LEVI MAKER REQ: [id number] RECD: 10/11/12 STATUS: SOUT _ ORDERED: IMAGE ANALYSIS, HPV / Thin Prep HiRisk Human Papilloma Virus test results received with preparation and diagnosis completed by [facility], [place], [place]. Results: NEGATIVE High Risk (for types 16, 18, 31, 33, 35, 39, 45, 51, 52, 56, 58, 59, 68) Wattblock Hybrid Capture Specimen Transport Media or Blue Nile ThinPrep PapTest PreservCyt Solution are the collection systems approved for use with this method by the U.S. Food and Drug Administration. Performance characteristics for Auto[employer] ([employer]) collection device have been determined by Laboratory Medicine and Pathology , [facility], [place], [place]. It has not been cleared or approved by the U.S. Food and Drug Administration. Test Performed by: [facility] Dpt of lab Med and Pathology [address] [place] [address] [employer]commerce Merchandising Manager: Santiago Torres III, M.D. Original hard copy report from [facility] [employer] is available upon request by calling Pathology at [phone]. Addendum Signed (signature on file) HEMANT Myers (ASCP) 10/17/12 0913 FINAL DIAGNOSIS Negative for Intraepithelial lesion or Malignancy Shift in lyndon suggestive of bacterial vaginosis COMMENTS: Specimen sent to [facility] [facility] in [place], [place] on 10/12/12. Results will be reported separately in an Addendum. A. Ectocervical/Endocervical CONTINUED ON NEXT PAGE * ML=Testing performed at Main Lab DEPARTMENT OF PATHOLOGY, [address] [place] [address] James Richter M.D. Director [facility] Permit #[id number] RUN DATE: 10/17/12 [facility] LAB LIVE PAGE 2 RUN TIME: [address] [place] [address] Specimen Inquiry Patient: FLORES IRWIN [id number] (Continued) CYTOLOGY ADEQ (Continued) Specimen Adequacy: Satisfactory of evaluation Transformation zone component identified Patient Information: HPV: High risk HPV DNA testing regardless of pap results. Actual Specimen Date: 10/10/12 Last Menstrual Date: 10/08/12 ?: N Post Menopausal?: N Hysterectomy?: N Previous Abnormal Pap Smears?:N Other Pertinent History: Prior Unknown Signed (signature on file) HEMANT Maddox (ASCP) 10/12 1208 This Pap test was evaluated with the assistance of the ThinPrep Test Imaging System. Due to cytologic findings at the ear muff assembler microscope, comprehensive manual rescreening by a Door Slinger may be required. The Pap Smear is a screening test designed to aid in the detection of premalignant and malignant conditions of the uterine cervix. It is not a diagnostic procedure and should not be used as the sole means of detecting cervical cancer. Both false- positive and false- negative reports do occur. Depending on your risk status, a Pap smear shoudl be obtained and evaluated every 1-3 years. END OF REPORT * ML=Testing performed at Main Lab DEPARTMENT OF PATHOLOGY, [address] [place] [address] James Richter M.D. Director [facility] Permit #[id number] 101 For types 16, 18, 31, 33, 35, 39, 45, 51, 52, 56, 58, 59 and 68. Test Performed by: [place] [address] [employer] Merchandising Manager: Santiago Torres III, M.D. 102 FINAL: NO GROWTH DAY 2 (<1,000 CFU/mL) Procedures Date Code Description Status 07/19/2018 62706 Non-Stress Test Completed 06/25/2018 25793 Non-Stress Test Completed 05/04/2018 17368 Ultrasound;Preg Uterus Single Or First Gestation Completed Transabdominal 04/01/2015 64928 OB Ultrasound First Trimester Completed 07/08/2014 54842 OB Ultrasound First Trimester Completed 01/16/2007 93793 Antepartum Care 4-6 Visits Completed 12/14/2006 44861 Echography Uterus Complete Completed Encounters Type Date Location Provider Dx Diagnosis Office Visit 08/08/2018 [facility] Jacquelin Rojas MD N84.1 Polyp of cervix 10:30a uteri O09.523 Supervision of elderly multigravida, third trimester Office Visit 06/25/2018 8:36a Delivery Jacquelin Rojas O20.8 Other hemorrhage in early Office Visit 10/11/2016 8:00a [facility] Jacquelin Rojas N96 Recurrent MD loss Office Visit 08/03/2016 10:30a [facility] Lisa Cazares NP Z01.419 Encntr for technical sales support specialist exam (general) (routine) w/o abn findings Z31.61 Procreat counseling and advice using natural family planning Office Visit 04/13/2016 9:20a [facility] Office Molly Aj, N76.0 Acute vaginitis ANP-C Office Visit 09/02/2015 10:00a [facility] Office Lisa Cazares, R87.610 Atyp squam cell of LEVI MAKER undet signfc cyto smr crvx (Asc-US) Office Visit 04/10/2015 1:20p [facility] Office Areli O36.80x0 w GABRIEL Garza inconclusive viability, unsp Office Visit 04/01/2015 2:00p [facility] Office Lisa Cazares, O36.80x1 with LEVI MAKER inconclusive viability, fetus 1 Office Visit 01/09/2015 10:00a [facility] Office Lisa Cazares, V72.31 Routine Marketing Professor LEVI MAKER Examination V76.2 Screening Malignant Neoplasm Cervix Office Visit 07/29/2014 11:20a [facility] Office Molly Aj, 640.80 ANP-C Hemorrhage Early Spec Episode Care Unspec Or N/A 634.90 Spontaneous W/O Complication Unspec Office Visit 07/08/2014 11:30a [facility] Office Shraddha 640.80 MD Sen Hemorrhage Early Spec Episode Care Unspec Or N/A Office Visit 12/19/2013 3:30p [facility] Office Lisa Cazares NP V72.31 Routine Marketing Professor Examination V76.2 Screening Malignant Neoplasm Cervix V74.5 Screening Examination Venereal Disease 625.4 Premenstrual Tension Syndromes Office Visit 10/10/2012 2:30p [facility] Office Lisa Cazares, V72.31 Routine Marketing Professor LEVI MAKER Examination V76.2 Screening Malignant Neoplasm Cervix V25.41 Contraceptive Pill Surveillance V74.5 Screening Examination Venereal Disease Plan of Treatment Future Appointment(s):09/13/2018 1:20 pm - Vicky Ayala CNM at [facility] 10:00 am - Chantal Olivares CNM at [facility]08/30/2018 10:00 am - Emelia Park CNM at [facility]08/23/2018 1:40 pm - Nicholas Durbin CNM at [facility]08/16/2018 10:40 am - Chantal Olivares CNM at [facility]2015 - CONNIE Varela-CN76.0 Acute vaginitisFollow up:Follow up PRN r/v annual /pap and IUD consult
[2018-09-01 08:13] VITALS: BP 114/81
--- NOTE | 2018-09-01 09:42 | UC ---
Respiratory Complaint HPI - HPI Summary HPI Summary: 5 DAYS OF COUGH AND CONGESTION. PATIENT STATES SHE IS COUGHING SO HARD SHE GAGS AND FEELS SHE'S PULLED A MUSCLE IN HER BACK. NO FEVER OR NAUSEA. DID NOT GET A FLU THIS SEASON SHOT. 38 WEEKS . URINE DIP NEGATIVE AT OB APPOINTMENT YESTERDAY. BABY IS MOVING WELL. NO LOWER ABD PAIN, LOSS OF FLUID OR VAGINAL BLEEDING. - History of Current Complaint Chief Complaint: UCRespiratory Stated Complaint: COUGH Time Seen by Provider: 09/01/18 09:23 Hx Obtained From: Patient Onset/Duration: Gradual Onset, Lasting Days, Still Present Timing: Constant Severity Initially: Moderate Severity Currently: Moderate Pain Intensity: 0 Pain Scale Used: 0-10 Numeric Character: Cough: Nonproductive Aggravating Factors: Nothing Alleviating Factors: Nothing Associated Signs And Symptoms: Positive: URI, Nasal Congestion. Negative: Dyspnea, Fever, Wheezing - Allergies/Home Medications Allergies/Adverse Reactions: Allergies Allergy/AdvReac Type Severity Reaction Status Date / Time No Known Allergies Allergy Verified 09/01/18 08:13 Home Medications: Home Medications NK [No Home Medications Reported] 09/01/18 [History Confirmed 09/01/18] PMH/Surg Hx/FS Hx/Imm Hx Previously Healthy: Yes - Surgical History Surgical History: Yes Surgery Procedure, Year, and Place: tummy tuck and breast augmentation - Family History Known Family History: Negative: Cardiac Disease, Hypertension, Diabetes - Social History Alcohol Use: None Substance Use Type: None Smoking Status (MU): Never Smoked Tobacco Have You Smoked in the Last Year: No Review of Systems All Other Systems Reviewed And Are Negative: Yes Constitutional: Positive: Negative ENT: Positive: Nasal Discharge Respiratory: Positive: Cough Cardiovascular: Positive: Negative Gastrointestinal: Positive: Negative Physical Exam Triage Information Reviewed: Yes Appearance: Well-Appearing, No Pain Distress, Well-Nourished Vital Signs: Initial Vital Signs Temp 98.3 F 09/01/18 08:09 Pulse 96 09/01/18 08:09 Resp 16 09/01/18 08:09 BP 114/81 09/01/18 08:09 Pulse Ox 100 09/01/18 08:09 Laboratory Tests 09/01/18 09:43 Influenza A (Rapid) Negative Influenza B (Rapid) Negative Vital Signs Reviewed: Yes Eyes: Positive: Conjunctiva Clear ENT: Positive: Hearing grossly normal, Pharynx normal, TMs normal Neck: Positive: Supple, Nontender, No Lymphadenopathy Respiratory Exam: Normal Cardiovascular Exam: Normal Abdomen Description: Positive: Soft Musculoskeletal: Positive: No Edema Neurological: Positive: Alert Psychological: Positive: Age Appropriate Behavior Skin: Negative: Rashes UC Diagnostic Evaluation - Laboratory O2 Sat by Pulse Oximetry: 100 Respiratory Course/Dx - Differential Dx/Diagnosis Provider Diagnosis: Upper respiratory infection Discharge - Sign-Out/Discharge Documenting (check all that apply): Patient Departure All imaging exams completed and their final reports reviewed: No Studies - Discharge Plan Condition: Stable Disposition: HOME Patient Education Materials: Upper Respiratory Infection (ED) Referrals: Keisha Lainez MD [Primary Care Provider] - If Needed Additional Instructions: FLU SWAB NEGATIVE. YOUR SYMPTOMS ARE STILL LIKELY VIRALLY MEDIATED AND SHOULD RESOLVE ON THEIR OWN WITH TIME. NO INDICATION FOR ANTIBIOTICS AT PRESENT. REST, HYDRATE, OTC COUGH MEDS NEEDED (NO IBUPROFEN OR ALEVE). SEEK FOLLOW-UP IF YOU ARE NOT IMPROVING EXPECTED. GO TO THE ER OR L&D IF BABY STOPS MOVING, OR YOU DEVELOP LOWER ABDOMINAL PAIN, UNUSUAL CONTRACTIONS, LOSS OF FLUID, VAGINAL BLEEDING OR ANY OTHER CONCERNING SYMPTOMS. - Billing Disposition and Condition Condition: STABLE Disposition: Home
[2018-09-01 09:54] LABS: Influenza A Molecular NEGATIVE (Negative); Influenza B Molecular NEGATIVE (Negative)
== END 2018-09-01 10:11 | disposition home or self-care (01) ==
LOC: UCEAST 08:06
DX: J06.9 Acute upper respiratory infection, unspecified (principal)
CPT/HCPCS: 99211; G0463

== ENCOUNTER 2018-09-10 23:27 | Inpatient (IN) | payer OTHER ==
[2018-09-11] MEDS ORDERED: Nalbuphine* 10 MG/ML 1 ML VIAL IV ONE (00:34)
[2018-09-11] MEDS ORDERED: Promethazine INJ(RESTRICTED)* 25 MG/ML 1 ML VIAL IV ONE (00:34)
[2018-09-11] MEDS ORDERED: Lactated Ringers 1000 ML Bag* 1,000 ML IV ONE ×2 (00:34→02:39)
[2018-09-11] MEDS ORDERED: Buffered Lidocaine 1% SYRIN* 1 ML/SYRINGE INTRADERM ONE (00:34)
[2018-09-11] MEDS ORDERED: Lactated Ringers 1000 ML Bag* 1,000 ML IV SCH ×3 (01:00→08:00)
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
[2018-09-11 02:11] LABS: ABS Basophils 0 10^3/ul (0-0.2); ABS Eosinophils 0.1 10^3/ul (0-0.6); ABS Lymphocytes 2.4 10^3/ul (1.0-4.8); ABS Monocytes 0.7 10^3/ul (0-0.8); ABS Neutrophils 7.9 10^3/ul (1.5-7.7); ABS Nucleated RBC 0 10^3/ul; Eosinophil % 0.6 %; Hematocrit 38 % (35-47); Hemoglobin 13.2 g/dl (12.0-16.0); Lymphocyte % 21.7 %; Mean Corpuscular HGB Conc 35 g/dl (31-36); Mean Corpuscular Hemoglobin 33 pg (27-31); Mean Corpuscular Volume 96 fL (80-97); Mean Platelet Volume 8.4 fL (7.4-10.4); Nucleated Red Blood Cells % 0.1; Platelet Count 166 10^3/ul (150-450); Red Blood Count 3.95 10^6/ul (4.00-5.40); Red Cell Distribution Width 14 % (10.5-15)
[2018-09-11] MEDS ORDERED: Bupivacaine 0.5% SDV PF* 30ML VIAL ONE (02:12)
[2018-09-11] MEDS ORDERED: OBEPIDURAL* 250 ML EPIDURAL ONE (02:20)
[2018-09-11] MEDS ORDERED: Phenylephrine IV* 40 MCG/ML 10 ML SYRINGE IV PUSH PRN (02:39)
[2018-09-11] MEDS ORDERED: Famotidine TAB* 20 MG PO PRN (02:39)
[2018-09-11] MEDS ORDERED: EPHEDrine (Pressors)* 50 MG/ML VIAL IV PUSH PRN (02:39)
[2018-09-11] MEDS ORDERED: Sodium Citrate/Citric Acid* 15 ML UDC PO PRN (02:39)
[2018-09-11] MEDS ORDERED: OBEPIDURAL* 250 ML EPIDURAL SCH (03:00)
[2018-09-11] MEDS ORDERED: Oxytocin in LR* 20 UNITS/1,000 ML BAG IVPB ONE (06:41)
[2018-09-11] MEDS ORDERED: Acetaminophen TAB* 325 MG PO PRN (07:22)
[2018-09-11] MEDS ORDERED: Glycerin ADULT SUPP PR PRN (07:22)
[2018-09-11] MEDS ORDERED: Witch Hazel PAD* JAR TOPICAL PRN (07:22)
[2018-09-11] MEDS ORDERED: Dibucaine 1% 28.35 GM TUBE PR PRN (07:22)
--- NOTE | 2018-09-11 07:31 | PN ---
Progress Note - Progress Note Date of Service: 09/11/18 Note: Pt uncomfortable; requesting epidural Anesthesia aware FHR 125, moderate variability, no evidence of acidemia Ctx 2-5 minutes Anticipate progression to
--- NOTE | 2018-09-11 07:42 | PROCNOTE ---
[facility] OB: Delivery Note - Nursery Level of Nursery: Regular/Bedside - Perineum Perineal Injury: 2nd Degree Perineal Repair: By Delivering Practioner - repaired with 3-0 rapide under local infiltration, 1% lido and CEI, pt tolerated well - Events Delivery Events of Note: Pitocin Only After Delivery - Additional Delivery Notes Additional Delivery Notes: Pt admitted at 38+5 in active labor. Progressed to with CEI infusing. Liveborn male, OA to DEWEY, shoulders followed easily with left nuchal arm. vigorous with spontaneous cry, heartbeat >110 BPM. Delivered to maternal abdomen. Cord clamped x2 and cut by FOB. Length of labor 12 hours 31 minutes. Pt pushed for 34 minutes. Spontaneous delivery of intact placenta, membranes complete. Fundus firm to massage with IV Pitocin infusing. Minimal bleeding noted. EBL 300mL. Careful inspection of the perineum revealed second degree midline laceration repaired in the usual fashion, anatomy restored, good homeostasis. At time of note, mother and infant in stable condition, breast feeding.
[2018-09-11] MEDS ORDERED: Oxytocin in LR* 20 UNITS/1,000 ML BAG IVPB SCH (08:00)
[2018-09-11] MEDS ORDERED: Simethicone TAB* 80 MG TAB.CHEW PO SCH (08:30)
[2018-09-11] MEDS: Docusate CAP* 100 MG PO SCH ×3 (08:42→20:36)
[2018-09-11] MEDS: Ibuprofen TAB* 600 MG PO PRN ×3 (08:43→20:36)
[2018-09-12] MEDS: Ibuprofen TAB* 600 MG PO PRN ×4 (02:30→21:07)
[2018-09-12 08:17] LABS: ABS Basophils 0 10^3/ul (0-0.2); ABS Eosinophils 0.1 10^3/ul (0-0.6); ABS Lymphocytes 1.8 10^3/ul (1.0-4.8); ABS Monocytes 0.6 10^3/ul (0-0.8); ABS Neutrophils 7.4 10^3/ul (1.5-7.7); ABS Nucleated RBC 0 10^3/ul; Eosinophil % 1.3 %; Hematocrit 34 % (35-47); Hemoglobin 11.9 g/dl (12.0-16.0); Lymphocyte % 17.7 %; Mean Corpuscular HGB Conc 35 g/dl (31-36); Mean Corpuscular Hemoglobin 34 pg (27-31); Mean Corpuscular Volume 96 fL (80-97); Mean Platelet Volume 8.3 fL (7.4-10.4); Nucleated Red Blood Cells % 0; Platelet Count 126 10^3/ul (150-450); Red Blood Count 3.53 10^6/ul (4.00-5.40); Red Cell Distribution Width 14 % (10.5-15); White Blood Count 9.9 10^3/ul (3.5-10.8)
[2018-09-12] MEDS: Docusate CAP* 100 MG PO SCH ×3 (08:40→21:07)
[2018-09-12] MEDS ORDERED: Ferrous Gluconate TAB* 324 MG TAB PO SCH (09:00)
[2018-09-13] MEDS: Ibuprofen TAB* 600 MG PO PRN ×2 (03:32→09:37)
[2018-09-13 08:17] VITALS: BP 111/67
[2018-09-13] MEDS: Docusate CAP* 100 MG PO SCH (09:38)
== END 2018-09-13 12:20 | disposition home or self-care (01) | DRG 560 ==
LOC: MCHOBOUT 23:27 → MCHOB 09-11 00:41
PROVIDERS: ADMIT Advanced Practice Midwife; ATTEND Advanced Practice Midwife
PROC: 10E0XZZ Delivery of Products of Conception, External Approach (ICD-10-PCS; principal; 2018-09-11)
PROC: 0KQM0ZZ Repair Perineum Muscle, Open Approach (ICD-10-PCS; 2018-09-11)
DX: O99.284 Endocrine, nutritional and metabolic diseases complicating childbirth (principal); Z37.0 Single live birth; E07.89 Other specified disorders of thyroid; O70.1 Second degree perineal laceration during delivery; O32.2XX0 Maternal care for transverse and oblique lie, not applicable or unspecified; Z3A.39 39 weeks gestation of pregnancy
CPT/HCPCS: 36415; 85025; 86850; 86900; 86901; A9270-GY